=== PATIENT | male | born 1965 | race Caucasian/White ===

== ENCOUNTER 2016-10-15 07:21 | Day surgery (SDC) | payer BC ==
[~2016-10-15] VITALS: Ht 188 cm; Wt 108.8 kg
[~2016-10-15 07:21] MED LIST: ASPIR 8181 M1 PO; AZOR 10/20 M1 TABLET PO; LOFIBRA,TRIGLI160 MG PO; OMEPRAZOLE40 M1 PO; ONE DAILY FOR1 EACH PO; TYLENOL EXTRA500 MG PO
[2016-10-15 08:08] VITALS: BP 127/82
[2016-10-15] MEDS ORDERED: PERCOCET 5/31 TABLET PO (10:58)
[2016-10-15] MEDS ORDERED: COLACE100 MG PO (10:58)
[2016-10-15 13:35] VITALS: BP 140/84
== END 2016-10-15 13:53 | disposition home or self-care (01) ==
LOC: SDC 07:21
PROC: 06BY3ZC Excision of Hemorrhoidal Plexus, Percutaneous Approach (ICD-10-PCS; principal; 2016-10-15)
DX: K64.2 Third degree hemorrhoids (principal); I10 Essential (primary) hypertension; E78.5 Hyperlipidemia, unspecified; Z79.82 Long term (current) use of aspirin
CPT/HCPCS: 88304; J0330; J1100; J2250; J2405; J2710; J3010

== ENCOUNTER 2016-12-05 09:41 | Emergency (ER) | payer BC ==
[~2016-12-05] VITALS: Ht 188 cm; Wt 114.0 kg
[~2016-12-05 09:41] MED LIST changes: +COLACE100 MG PO; +PERCOCET 5/31 TABLET PO
[2016-12-05 11:09] LABS: HEMATOCRIT 45.4 % (38.0-50.0); MCHC 34.1 G/DL (30.0-36.0); MEAN PLAT.VOLUME 8.8 uM^3 (9.0-12.4); PLATELET COUNT 350 K/uL (156-360); RED BLOOD COUNT 5.16 M/uL (4.00-5.50); WHITE BLOOD COUNT 8.6 K/uL (4.1-10.2)
[2016-12-05 11:29] LABS: CHLORIDE 107 mEq/L (99-109); POTASSIUM 4.5 mEq/L (3.7-5.4); SODIUM 139 mEq/L (136-147)
[2016-12-05 11:30] LABS: GLUCOSE 95 mg/dL (70-99)
[2016-12-05 11:32] LABS: ANION GAP 12 MEQ/L (2-14)
[2016-12-05 11:34] LABS: GFR ESTIMATE (CALCULATED) > 59 mL/min/
[2016-12-05 11:35] LABS: UREA NITROGEN (BUN) 11 mg/dL (9-23)
[2016-12-05] MEDS ORDERED: MEDROL DOSEPAK4 MG PO (13:06)
[2016-12-05] MEDS ORDERED: ZITHROMAX Z-PA250 MG PO (13:06)
[2016-12-05] MEDS ORDERED: ANTIVERT25 MG PO (13:19)
[2016-12-05 13:31] VITALS: BP 120/74
== END 2016-12-05 13:34 | disposition home or self-care (01) ==
LOC: EME 09:41
PROVIDERS: Physician Assistant
DX: R42 Dizziness and giddiness (principal); J32.0 Chronic maxillary sinusitis; I10 Essential (primary) hypertension; Z79.82 Long term (current) use of aspirin; Z87.891 Personal history of nicotine dependence; Z86.73 Personal history of transient ischemic attack (TIA), and cerebral infarction without residual deficits
CPT/HCPCS: 70551; 80048; 85027; 93005; 99281; 99284

== ENCOUNTER 2017-02-22 08:35 | Emergency (ER) | payer BC ==
[~2017-02-22] VITALS: Ht 188 cm; Wt 111.6 kg
[~2017-02-22 08:35] MED LIST changes: +ANTIVERT25 MG PO; +MEDROL DOSEPAK4 MG PO; +ZITHROMAX Z-PA250 MG PO
[2017-02-22 09:39] LABS: HEMATOCRIT 42.9 % (38.0-50.0); MCH 29.9 PG (29.0-34.0); MCHC 33.8 G/DL (30.0-36.0); MCV 88.5 FL (86-99); MEAN PLAT.VOLUME 8.4 uM^3 (9.0-12.4); PLATELET COUNT 236 K/uL (156-360); RBC DIS.WIDTH-SD 38.8 % (39-53); RED BLOOD COUNT 4.85 M/uL (4.00-5.50); WHITE BLOOD COUNT 6.1 K/uL (4.1-10.2)
[2017-02-22 09:54] LABS: CHLORIDE 105 mEq/L (99-109); POTASSIUM 4.2 mEq/L (3.7-5.4); SODIUM 136 mEq/L (136-147)
[2017-02-22 09:55] LABS: GLUCOSE 94 mg/dL (70-99)
[2017-02-22 09:57] LABS: ANION GAP 11 MEQ/L (2-14)
[2017-02-22 09:59] LABS: GFR ESTIMATE (CALCULATED) > 59 mL/min/
[2017-02-22 10:00] LABS: TROP-I INTERPRETATION NEGATIVE; TROPONIN-I < 0.01 ng/mL (0.0-0.30); UREA NITROGEN (BUN) 9 mg/dL (9-23)
[2017-02-22 10:26] LABS: D-DIMER ELISA < 0.15 mg/L FEU (< 0.57)
[2017-02-22] MEDS ORDERED: NAPROSYN500 MG PO (12:14)
[2017-02-22 12:35] LABS: TROP-I INTERPRETATION NEGATIVE; TROPONIN-I < 0.01 ng/mL (0.0-0.30)
[2017-02-22 12:52] VITALS: BP 138/94
== END 2017-02-22 12:53 | disposition home or self-care (01) ==
LOC: EME 08:35
PROVIDERS: Emergency Medicine
DX: R07.9 Chest pain, unspecified (principal); I10 Essential (primary) hypertension; K21.9 Gastro-esophageal reflux disease without esophagitis; Z86.73 Personal history of transient ischemic attack (TIA), and cerebral infarction without residual deficits; Z87.891 Personal history of nicotine dependence
CPT/HCPCS: 71010; 80048; 84484; 85027; 85379; 93005; 99281; 99285; G0480; J1885; J7030